=== PATIENT | male | born 2000 | race Two or more races ===

== ENCOUNTER 2019-01-28 18:26 | Emergency (ER) | payer SELFPAY ==
[~2019-01-28] VITALS: Ht 165.1 cm; Wt 59.0 kg
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
[2019-01-28 18:32] VITALS: BP 127/76
--- NOTE | 2019-01-28 18:46 | NUR ---
ED Nurse Note: ERMD at bedside
--- NOTE | 2019-01-28 18:54 | NUR ---
ED Nurse Note: xray at bedside
[2019-01-28] MEDS ORDERED: HYDROcodone/Acetamin 5/325 tab ORAL ONE (19:00)
--- NOTE | 2019-01-28 19:07 | NUR ---
HAND-OFF: Report given to SOM Weller.
[2019-01-28 20:14] VITALS: BP 130/72
--- NOTE | 2019-01-28 20:14 | NUR ---
ER Nurse Note: Pt stable, no signs of distress, VSS, RA. Denies pain. Pt ambulated to restroom. No falls. soil technologist applied splint on lower extremity. Pt stated his brother will pick him up upon discharge. All safety measures met, will continue to [facility].
[2019-01-28] MEDS ORDERED: IBUPROFEN600 MG ORAL (20:24)
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
[2019-01-28 20:35] VITALS: BP 128/76
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
--- NOTE | 2019-01-29 10:42 | Diagnostic Imaging Report ---
Indication: left ankle pain Comparison: None Findings: 3 views of the left ankle obtained. Soft tissues are unremarkable. No acute fracture, malalignment, periostitis, or osteochondral defects are identified. There is fixation hardware from bimalleolar fractures. Impression: No acute findings
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
== END 2019-01-28 20:35 | disposition home or self-care (01) ==
LOC: EDBD 18:26 → EMR 18:39
DX: S90.32XA Contusion of left foot, initial encounter (principal); M25.572 Pain in left ankle and joints of left foot; S93.402A Sprain of unspecified ligament of left ankle, initial encounter; V03.99XA Pedestrian with other conveyance injured in collision with car, pick-up truck or van, unspecified whether traffic or nontraffic accident, initial encounter; Y92.410 Unspecified street and highway as the place of occurrence of the external cause
CPT/HCPCS: 29515; 99283